=== PATIENT | female | born 1985 | race Hispanic/Latino ===

== ENCOUNTER 2017-03-08 02:25 | Emergency (ER) | payer MEDICAID, OTHER ==
[2017-03-08 02:25] VITALS: BMI 23.3
[2017-03-08 02:33] VITALS: BP 109/72; PULSE 78; RESP 16; TEMP 98.2; O2SAT 100
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
[2017-03-08] MEDS ORDERED: Albuterol 0.042% Inhal Sol (1.25 mg/3 mL) UD ONE (13:20)
== END 2017-03-08 06:14 | disposition home or self-care (01) ==
LOC: H.ER 02:25
DX: S09.90XA Unspecified injury of head, initial encounter (principal); Y04.0XXA Assault by unarmed brawl or fight, initial encounter; Y92.89 Other specified places as the place of occurrence of the external cause